=== PATIENT | female | born 1985 | race Caucasian/White ===

== ENCOUNTER 2019-10-28 12:56 | Observation (INO) ==
--- NOTE | 2019-10-28 13:23 | ERNOTE ---
Neuro HPI ER Record Date of Service: 10/28/19 Presenting Symptoms: confusion Time Seen by Provider: 10/28/19 13:10 Source: patient Exam Limitations: clinical condition Immunizations: IMMUNIZATION HX Immunizations Up to Date Yes History of Influenza Vaccine No Allergies/Adverse Reactions: Allergies Allergy/AdvReac Type Severity Reaction Status Date / Time No Known Allergies Allergy Unverified 10/28/19 13:06 Home Medications: HOME MEDICATIONS NK 10/28/19 [Last Taken Unknown] - Pain Score Pain Score #1 Pain Score: 6 - History of Present Illness Narrative: The patient is a 33 year old female who presents for migraine headache which has been present for 2 hours. There are associated symptoms of disorientation. The patient reports pain to frontal head, 6/10. There are no alleviating factors. There are no aggravating factors. Previous treatments have included: none. The past medical history includes: migraine and hormone imbalance. The social history is negative. The patient has had no known ill contacts. Patient brought to ER by coworker after she reported migraine headache and was noted to be disoriented. Patient upon arrival is oriented to self, place but confused to events. Patient was having difficulty recalling recent holiday as well as day of month. Patient frequently repeats "I've had migraines since I was young" and becomes tearful during questioning. Patient denies any recent injury or increased stress. Patient states she typically drinks lots of water while at work because the fountain is close to her work station. Review of Systems - Review of Systems Constitutional: Present: no symptoms reported. Absent: recent illness, fever, fatigue EYE: Present: no symptoms reported. Absent: vision changes ENT: Present: no symptoms reported. Absent: ear pain, nasal drainage, sore throat Respiratory: Present: no symptoms reported. Absent: shortness of breath, cough Cardiology: Present: no symptoms reported. Absent: chest pain Gastrointestinal/Abdominal: Present: no symptoms reported. Absent: nausea, vomiting, diarrhea Genitourinary: Present: no symptoms reported. Absent: dysuria Musculoskeletal: Present: no symptoms reported. Absent: neck pain Skin: Present: no symptoms reported. Absent: rash Neurological: Present: headache. Absent: dizziness/light-headedness All Other Systems: All systems neg except as marked Medical History (Last Reviewed 10/28/19 @ 13:18 by WESLEY Alvarado) Migraine Surgical History: Surgical History (Last Reviewed 10/28/19 @ 13:18 by WESLEY Alvarado) No pertinent past surgical history Social History: (Last Reviewed 10/28/19 @ 13:18 by WESLEY Alvarado) Tobacco: Smoking Status: Current every day smoker Smoking cigarettes per day: 10 Alcohol: alcohol intake: current alcohol intake frequency: holiday/special occasion Substance Use: substance use type: does not use Physical Exam - Physical Exam General Appearance: Present: wd/wn, alert, moderate distress, crying - tearful Head Exam: Present: normal inspection, no evidence of injury Eye Exam: Normal inspection: bilateral, PERRL: bilateral, EOMI: bilateral Neck: Present: normal inspection, nontender Respiratory: Present: no respiratory distress, normal breath sounds, no accessory muscle use, lungs clear Cardiovascular/Chest: Present: no murmur, tachycardia Neurological Exam: Present: alert, normal mood/affect, no motor/sensory deficits, honing machine operator semiautomatic II-XII nml as tested, normal cerebellar test, disoriented to time, disoriented to situation. Absent: motor weakness, disoriented to place Skin Exam: Present: normal color, warm/dry [place] Coma Scale - Assess Eye Opening: Spontaneous Motor: Obeys Commands Verbal: Confused - Total Coma Scale Total: 14 Progress - Date and Time Seen: Date and Time: 10/28/19 13:21 Due to patient's disorientation will proceed with lab and CT evaluation. Feel that symptoms could be associated with migraine headache which patient has had in the past. Will await CT evaluation prior to symptoms treatment. 10/28/19 13:30 Contact made to employer at [employer] as the manager china Ryne brought her to ER. Report from staff that patient walking and area was being mopped and patient was reported to have fallen, unsure if patient struck head or had LOC at that time, event occurred this am unsure of specific time. Awaiting manager china to arrive for further information. 10/28/19 13:36 Nursing staff spoke with Ryne, manager china at [employer], who reports that patient was witnessed to fall from wet floor but was reported from other staff that patient was not seen striking head and jumped up immediately following incident, appearing embarrassed. Patient following approximately 1 hour later was noted to have increased confusion with repeat self about history of migraines. 10/28/19 14:35 Patient states that pain improved after administration of Toradol. Patient remains receiving IV hydration. Patient alert and oriented but remains having repeating of phrases, "I have a history of getting migraines ", "did Ryne bring me out ". 10/28/19 16:27 Patient remains to have persistent confusion with repeating of questions. Patient continues to ask who brought her and if Ryne brought her to ER. Patient does not recall falling this am or how she arrived to ER. Patient again continues to repeat that she has a history of migraines. Discussed case with and will admit for observation for AMS for continued monitoring. - Vital Signs Patient's Vital Signs:: I have reviewed the patient's vital signs. Vital Signs: Vital Signs 10/28/19 13:01 Temperature 36.5 C Pulse Rate 120 H Respiratory Rate 20 Blood Pressure 151/89 H O2 Sat by Pulse Oximetry 98 - EKG EKG #1 EKG: NSR - tachycardia rate 130, nonspecific ST T wave changes EKG read: Reviewed by me EKG Comments: No acute ischemic changes. Reviewed with . - X-Ray X-Ray #1 X-Ray: chest Interpretation: Reviewed by me X-ray Comments: IMPRESSION: NO ACUTE CARDIOPULMONARY ABNORMALITY IDENTIFIED. Electronically signed by Tyrel Justice D.O.. - CT/Ultrasound CT/Ultrasound Narrative: IMPRESSION: NORMAL EXAM. Electronically signed by Tyrel Justice D.O.. - Progress/Reassessment Chief Complaint: Altered Mental Status Progress:: Unchanged Departure Clinical Impression: Altered mental status Qualifiers: Altered mental status type: unspecified Qualified Code(s): R41.82 - Altered mental status, unspecified - Departure Disposition: Still a patient Condition: Stable
[2019-10-28 13:32] LABS: Hematocrit 44.3 % (37.0-47.0); Hemoglobin 14.4 gm/dL (12.5-16.0); Mean Cell Volume 87.9 fl (78-100); Mean Corpuscular Hemoglobin 28.6 pg (27-31); Mean Corpuscular Hgb Conc 32.5 g/dl (32-36); Mean Platelet Volume 10.5 fl (8-12.5); Neutrophil # 13.6 K/mm3 (1.3-6.0); Neutrophil % 81.1 % (42-75.0); Platelet Count 292 K/mm3 (150-450); Red Blood Count 5.04 M/mm3 (4.2-5.4); Red Cell Distribution Width 13.9 % (11.5-14.0); White Blood Count 16.8 K/mm3 (4.0-10.5)
[2019-10-28 13:43] LABS: Prothrombin Time (Patient) 9.7 Seconds (9.1-10.7)
[2019-10-28 13:44] LABS: INR 0.98 INR (0.92-1.08)
[2019-10-28 13:46] LABS: Albumin * 3.7 gm/dl (3.4-5.0); Anion Gap 13.5 mmol/L (6.8-13.8); BUN/Creatinine Ratio 11.4 (9.0-21.6); Bilirubin, Total 0.2 mg/dL (0.0-1.1); Ca. Corrected For Albumin 9.2 mg/dL (8.4-10.2); Calcium * 9.3 mg/dL (7.9-10.9); Carbon Dioxide 26.5 mmol/L (24-32.6); Total Protein 7.6 gm/dL (6.2-8.2)
[2019-10-28] MEDS ORDERED: KETOROLAC TROMETHAMINE 30 MG/ML VIAL IV ONE (14:17)
[2019-10-28] MEDS ORDERED: NORMAL SALINE 1,000 ML IV PRN (14:17)
[2019-10-28 15:26] LABS: Urine Bilirubin Negative (NEGATIVE); Urine Blood Negative /ul (NEGATIVE); Urine Ketone Negative (NEGATIVE); Urine Nitrite Negative (NEGATIVE); Urine Protein 15 mg/dL (NEGATIVE); Urine Specific Gravity 1.025 SP.GR. (1.005-1.010); Urine Urobilinogen Normal (NORMAL)
[2019-10-28 15:37] LABS: Urine Appearance Slightly Cloudy (CLEAR); Urine Bacteria TRACE; Urine Color Yellow; Urine RBC None Seen /hpf (0-5); Urine WBC 0-5 /hpf (0-5)
[2019-10-28 15:41] LABS: Cocaine Ur Negative (NEGATIVE); Urine Barbiturate Negative (NEGATIVE); Urine Benzodiazepines Negative (NEGATIVE); Urine Opiates Negative (NEGATIVE); Urine PCP Negative (NEGATIVE)
[2019-10-28 15:55] LABS: Urine THC Positive (NEGATIVE)
[2019-10-28] MEDS ORDERED: ONDANSETRON HCL 4 MG TABLET PO PRN (18:16)
[2019-10-28] MEDS ORDERED: ACETAMINOPHEN 325 MG TABLET PO PRN (18:16)
[2019-10-28] MEDS ORDERED: amLODIPine BESYLATE 5 MG TABLET PO ONE (18:40)
--- NOTE | 2019-10-28 19:06 | HP ---
Chief Complaint - Chief Complaint Date of Service: 10/28/19 Time of Service: 18:43 Chief Complaint: I fell earlier today and was confused after. History of Present Illness: 33-year-old female with past medical history of migraine headache with aura was brought to the ER for evaluation after the patient endured a fall while working at [employer] earlier this morning. Patient reports she does not recall the details of the event however her coworker/boss that accompanied her in the ER reported that the patient was witnessed falling after she slipped on a wet floor. Witnesses deny seeing her hit her head or any seizure activities however her coworkers became concerned with the patient appeared to be confused and disoriented after the fall. She also presented nonsensical speech that did not make much sense so decision to bring her to the ER was made. Once in the ER the patient was noted to be oriented in person and place but disoriented in time. She was unable to answer musa questions and kept repeating herself. Neurological evaluation however was negative for any concerning findings. Given the presentation of her symptoms head CT was ordered to rule out any abnormalities. During bedside evaluation and admission the patient appeared fully awake and alert and answers questions adequately, she only stumbled when asked who the current digital forensic examiner is and she said Bargerda Obama. She attributed this to lack of current events and the fact that she does not watch the news, she did however recall the year and the month. Bedside evaluations were negative for any other neurological deficits. Upon questioning the patient admits to occasional smoking of marijuana in fact she tested positive for the drug on ER labs. She admits to years of smoking pot and cigarettes and denies any adverse reactions in the past. Of importance the patient reports multiple concussions during childhood due to falls [place] living [place] farm, she explains that it was not uncommon for you to get injured while living on a farm and denies that this episode is a recurrence. She also explains an extensive history of migraine headaches with aura which included transient hemiplegia or dysarthria that resolved with migraine medications and going to sleep. She reports these migraines were current throughout her childhood but has been multiple years since she's had one. Patient says she had an uneventful morning and felt fine before going to work, she also denies having headache before the fall occurred. However she does not recall how she fell or if she lost consciousness when she did fall. Medical History (Last Reviewed 10/28/19 @ 17:27 by Cheryl Lord RN) Migraine Surgical History: Surgical History (Last Reviewed 10/28/19 @ 17:27 by Cheryl Lord RN) No pertinent past surgical history Family History: Family History (Last Reviewed 10/28/19 @ 18:49 by Lenane Vann MD) Other No pertinent family history Social History: (Last Reviewed 10/28/19 @ 17:29 by Cheryl Lord RN) Social History: Marital status: Single lives independently: Yes household members: none current occupational status: employed Highest education level completed: high school graduate Service: No Tobacco: Smoking Status: Current every day smoker tobacco type: cigarettes Smoking cigarettes per day: 4 Alcohol: alcohol intake: current alcohol intake frequency: holiday/special occasion Substance Use: substance use type: does not use Dietary Habits: caffeine: Yes Type: coffee, tea Peds Patient Hx - Developmental: No Pertinent Hx Peds Patient Hx - Medical: Head Trauma, Other - Migraine headaches Peds Patient Hx - Cardiac/Respiratory: No Pertinent Hx Peds Patient Hx - Surgical: No Surgical History Patient History - Cancer: No Hx of Cancer Review Of Systems (GEN) - Review of Systems Generalized/Overall Review: Present: No Symptoms Reported EENTM: Present: No Symptoms Reported Respiratory: Present: No Symptoms Reported Cardiac: Present: No Symptoms Reported Abdominal: Present: No Symptoms Reported Genitourinary: Present: No Symptoms Reported Musculoskeletal: Present: No Symptoms Reported Neurological: Present: Headache Skin: Present: No Symptoms Reported Endocrine: Present: No Symptoms Reported Immunizations: IMMUNIZATION HX Immunizations Up to Date Yes History of Influenza Vaccine No Allergies/Adverse Reactions: Allergies Allergy/AdvReac Type Severity Reaction Status Date / Time No Known Allergies Allergy Verified 10/28/19 17:29 Home Medications: HOME MEDICATIONS NK 10/28/19 [Last Taken Unknown] Exam - Exam Vital Signs: Vital Signs - Last Taken Temp 36.9 C 10/28/19 17:32 Pulse 102 H 10/28/19 17:32 Resp 22 H 10/28/19 17:32 BP 157/85 H 10/28/19 17:32 Pulse Ox 98 10/28/19 17:32 Constitutional: Present: Alert, Oriented x3, Cooperative, Well developed, Well nourished, No distress, Morbidly obese ENT Exam: Present: normal ENT inspection, hearing grossly normal, pharynx normal, TMs normal Eye Exam: bilateral eye: normal inspection, PERRL, EOMI Neck: Present: non-tender, full range of motion, supple, normal inspection, trachea midline Back Exam: Present: normal inspection, no CVA tenderness, no vertebral tenderness Breasts: Present: Exam deferred, Nontender Respiratory: Present: chest non-tender, lungs clear, normal breath sounds, no respiratory distress, no accessory muscle use Cardiovascular/Chest: Present: normal peripheral pulses, regular rate, rhythm, no chest tenderness, no edema, no gallop, no JVD, no murmur, no rub Peripheral Pulses: carotid (R): 4+, carotid (L): 4+, dorsalis-pedis (R): 4+, dorsalis-pedis (L): 4+ Abdomen: Present: Normal bowel sounds, soft, nontender, nondistended, no rebound tenderness, no hepatospenomegaly, no masses, obese /Rectal: Present: Exam deferred Extremity: Present: normal range of motion, non-tender, normal inspection, no pedal edema, no calf tenderness, normal capillary refill, pelvis stable Skin Exam: Present: normal color, warm/dry, no cyanosis Lymphatic: Present: no adenopathy Neurologic: Present: visual c developer II-XII nml as tested, normal cerebellar test, no motor/sensory deficits, alert, normal mood/affect, oriented x 3 Appearance: Present: appropriate appearance, appropriate insight, neat, impaired remote memory - Patient could not recall who the vice president global advertising sales is, however she appears oriented x3. Eye contact: Present: cooperative, good eye contact, normal speech Thoughts: Present: normal thought pattern, no apparent hallucination Diagnostic Studies: Abnormal Lab Results 10/28/19 10/28/19 10/28/19 Range/Units 13:30 13:30 15:17 WBC 16.8 H (4.0-10.5) K/mm3 Immature Gran # (Auto) 0.05 H (0.000-0.0310) K/mm3 Neutrophils % 81.1 H (42-75.0) % Lymphocytes % 14.6 L (20-51) % Neutrophils # 13.6 H (1.3-6.0) K/mm3 ESR 21 H (0-15) mm/hr Urine Protein (NEGATIVE) mg/dL Urine Marijuana (THC) Positive H (NEGATIVE) 10/28/19 Range/Units 15:20 WBC (4.0-10.5) K/mm3 Immature Gran # (Auto) (0.000-0.0310) K/mm3 Neutrophils % (42-75.0) % Lymphocytes % (20-51) % Neutrophils # (1.3-6.0) K/mm3 ESR (0-15) mm/hr Urine Protein 15 H (NEGATIVE) mg/dL Urine Marijuana (THC) (NEGATIVE) Laboratory Results WBC 16.8 K/mm3 (4.0-10.5) H 10/28/19 13:30 RBC 5.04 M/mm3 (4.2-5.4) 10/28/19 13:30 Hgb 14.4 gm/dL (12.5-16.0) 10/28/19 13:30 Hct 44.3 % (37.0-47.0) 10/28/19 13:30 MCV 87.9 fl (78-100) 10/28/19 13:30 MCH 28.6 pg (27-31) 10/28/19 13:30 MCHC 32.5 g/dl (32-36) 10/28/19 13:30 RDW 13.9 % (11.5-14.0) 10/28/19 13:30 Plt Count 292 K/mm3 (150-450) 10/28/19 13:30 MPV 10.5 fl (8-12.5) 10/28/19 13:30 Immature Gran % (Auto) 0.30 % (0.001-0.429) 10/28/19 13:30 Immature Gran # (Auto) 0.05 K/mm3 (0.000-0.0310) H 10/28/19 13:30 Neutrophils % 81.1 % (42-75.0) H 10/28/19 13:30 Lymphocytes % 14.6 % (20-51) L 10/28/19 13:30 Monocytes % 3.7 % (0.0-9) 10/28/19 13:30 Eosinophils % 0.1 % (0.0-3.0) 10/28/19 13:30 Basophils % 0.2 % (0.0-1.0) 10/28/19 13:30 Nucleated RBC % 0.0 k/mm3 (0-1) 10/28/19 13:30 Neutrophils # 13.6 K/mm3 (1.3-6.0) H 10/28/19 13:30 Lymphocytes # 2.45 k/mm3 (1.5-3.5) 10/28/19 13:30 Monocytes # 0.6 k/mm3 (0.0-1.0) 10/28/19 13:30 Eosinophils # 0.0 k/mm3 (0.0-0.7) 10/28/19 13:30 Absolute Basophils 0.0 k/mm3 (0.0-0.1) 10/28/19 13:30 ESR 21 mm/hr (0-15) H 10/28/19 13:30 PT 9.7 Seconds (9.1-10.7) 10/28/19 13:30 INR (Anticoag Therapy) 0.98 INR (0.92-1.08) 10/28/19 13:30 PTT ([place]) 32.0 Seconds (24-32) 10/28/19 13:30 Sodium 140 mmol/L (132-142) 10/28/19 13:30 Plasma Sodium 140 mmol/L (130-142) 10/28/19 13:30 Potassium 4.0 mmol/L (3.4-4.6) 10/28/19 13:30 Chloride 104 mmol/L (97-106) 10/28/19 13:30 Carbon Dioxide 26.5 mmol/L (24-32.6) 10/28/19 13:30 Anion Gap 13.5 mmol/L (6.8-13.8) 10/28/19 13:30 BUN 9 mg/dL (3-23) 10/28/19 13:30 Creatinine 0.79 mg/dL (0.4-1.4) 10/28/19 13:30 Est GFR (Non-Af Amer) 90 mL/min (60-130) 10/28/19 13:30 BUN/Creatinine Ratio 11.4 (9.0-21.6) 10/28/19 13:30 Random Glucose 109 mg/dL (70-110) 10/28/19 13:30 Calcium 9.3 mg/dL (7.9-10.9) 10/28/19 13:30 Calcium Adj for Albumin 9.2 mg/dL (8.4-10.2) 10/28/19 13:30 Total Bilirubin 0.2 mg/dL (0.0-1.1) 10/28/19 13:30 AST 24 U/L (0-48) 10/28/19 13:30 ALT 41 U/L (19-67) 10/28/19 13:30 Alkaline Phosphatase 106 U/L (50-170) 10/28/19 13:30 Total Protein 7.6 gm/dL (6.2-8.2) 10/28/19 13:30 Albumin 3.7 gm/dl (3.4-5.0) 10/28/19 13:30 Urine Color Yellow 10/28/19 15:20 Urine Appearance Slightly cloudy (CLEAR) 10/28/19 15:20 Urine pH 7.0 pH (5.0-7.0) 10/28/19 15:20 Ur Specific [place] 1.025 SP.GR. (1.005-1.010) 10/28/19 15:20 Urine Protein 15 mg/dL (NEGATIVE) H 10/28/19 15:20 Urine Glucose (UA) Negative mg/dL (NEGATIVE) 10/28/19 15:20 Urine Ketones Negative mg/dL (NEGATIVE) 10/28/19 15:20 Urine Blood Negative /ul (NEGATIVE) 10/28/19 15:20 Urine Nitrate Negative (NEGATIVE) 10/28/19 15:20 Urine Bilirubin Negative mg/dl (NEGATIVE) 10/28/19 15:20 Prot Sulfosalicylic Acd Negative mg/dL (0) 10/28/19 15:20 Urine Urobilinogen Normal EU/dl (NORMAL) 10/28/19 15:20 Ur Leukocyte Esterase Negative /ul (NEGATIVE) 10/28/19 15:20 Urine RBC None seen /hpf (0-5) 10/28/19 15:20 Urine WBC 0-5 /hpf (0-5) 10/28/19 15:20 Ur Epithelial Cells 0-5 /hpf (0-5) 10/28/19 15:20 Urine Bacteria Trace (NONE) 10/28/19 15:20 Urine Culture Comments No culture indicated 10/28/19 15:20 Urine HCG, Qual Negative (NEGATIVE) 10/28/19 15:20 Urine Opiates Screen Negative (NEGATIVE) 10/28/19 15:17 Barbiturate Screen Negative (NEGATIVE) 10/28/19 15:17 Ur Phencyclidine Scrn Negative (NEGATIVE) 10/28/19 15:17 Urine Amphetamine Negative (NEGATIVE) 10/28/19 15:17 U Benzodiazepines Scrn Negative (NEGATIVE) 10/28/19 15:17 Urine Cocaine Screen Negative (NEGATIVE) 10/28/19 15:17 Urine Marijuana (THC) Positive (NEGATIVE) H 10/28/19 15:17 Ethyl Alcohol Less than 3.0 mg/dL (0.0-10.0) 10/28/19 13:50 Assessment/Plan - Narrative Narrative: Patient was evaluated medical chart was reviewed and decision to admit for observation on the [facility] floor for acute altered mental status and dehydration was made. ER labs demonstrated elevated white count however she has no signs or symptoms of current infection, urinalysis is negative. She denies any recent fever or chills and physical exam was completely negative. Patient also has an elevated ESR but no signs of inflammation. Given the elevated WBCs and ESR it is very possible that the patient is presenting hemoconcentration on labs possibly due to dehydration, we will repeat labs in the morning for reevaluation. Patient will be monitored with periodic neuro and vitals checks. IV fluids were administered in the ER. Antihypertensive was ordered to address current hypertension for optimal blood pressure control. She appears comfortable and oriented in person, place however she cannot recall who the current vice president global advertising sales is. She claims this is due to lack of knowledge of current events however given the fall that occurred earlier today we will keep her overnight and observe her closely. Head CT was negative for any abnormalities. - Assessment/Plan (1) Fall Problem: Acute (2) Altered mental status Problem: Acute Qualifiers: Altered mental status type: unspecified Qualified Code(s): R41.82 - Altered mental status, unspecified (3) Migraine headache with aura Problem: Acute Qualifiers: Status migrainosus presence: without status migrainosus Intractability: not intractable Qualified Code(s): G43.109 - Migraine with aura, not intractable, without status migrainosus (4) Dehydration Problem: Acute (5) Marijuana smoker Problem: Acute (6) H/O multiple concussions Problem: Acute
[2019-10-29 06:27] LABS: Hematocrit 40.5 % (37.0-47.0); Hemoglobin 12.8 gm/dL (12.5-16.0); Mean Corpuscular Hemoglobin 28.8 pg (27-31); Mean Corpuscular Hgb Conc 31.6 g/dl (32-36); Mean Platelet Volume 10.4 fl (8-12.5); Neutrophil # 5.1 K/mm3 (1.3-6.0); Neutrophil % 56.9 % (42-75.0); Platelet Count 248 K/mm3 (150-450); Red Blood Count 4.45 M/mm3 (4.2-5.4)
--- NOTE | 2019-10-29 08:49 | DS ---
(1) Fall Problem: Acute Qualifiers: Encounter type: initial encounter Qualified Code(s): W19.XXXA - Unspecified fall, initial encounter (2) Altered mental status Problem: Resolved Qualifiers: Altered mental status type: unspecified Qualified Code(s): R41.82 - Altered mental status, unspecified (3) Migraine headache with aura Problem: Chronic Qualifiers: Status migrainosus presence: without status migrainosus Intractability: not intractable Qualified Code(s): G43.109 - Migraine with aura, not intractable, without status migrainosus (4) Dehydration Problem: Resolved (5) Marijuana smoker Problem: Chronic (6) H/O multiple concussions Problem: Chronic Date of Discharge:: 10/29/19 Hospital Course: 33-year-old female admitted for altered mental status after a fall was evaluated at bedside this morning was found to be afebrile and in no acute distress. Patient is fully alert and oriented x3. She reports feeling better and ready to go home, when asked she denies any headaches or dizziness or any other neurological symptoms. Labs this morning revealed resolution of the le ukocytosis confirming my suspicion of hemoconcentration, there has been no development of signs or symptoms of acute infection or any other concerns. We will discharge her home with instructions to establish with a PCP for management of her migraine headaches, offer was made for her to follow-up with us at the primary care clinic here at [facility]. Procedures Performed: none Results and Findings: Lab Pending Results 10/28/19 13:30: WBC 16.8 H, RBC 5.04, Hgb 14.4, Hct 44.3, MCV 87.9, MCH 28.6, MCHC 32.5, RDW 13.9, Plt Count 292, MPV 10.5, Immature Gran % (Auto) 0.30, Immature Gran # (Auto) 0.05 H, Neutrophils % 81.1 H, Lymphocytes % 14.6 L, Monocytes % 3.7, Eosinophils % 0.1, Basophils % 0.2, Nucleated RBC % 0.0, Neutrophils # 13.6 H, Lymphocytes # 2.45, Monocytes # 0.6, Eosinophils # 0.0, Absolute Basophils 0.0 10/28/19 13:30: ESR 21 H 10/28/19 13:30: PT 9.7, INR (Anticoag Therapy) 0.98, PTT ([place]) 32.0 10/28/19 13:30: Sodium 140, Plasma Sodium 140, Potassium 4.0, Chloride 104, Carbon Dioxide 26.5, Anion Gap 13.5, BUN 9, Creatinine 0.79, Est GFR (Non-Af Amer) 90, BUN/Creatinine Ratio 11.4, Random Glucose 109, Calcium 9.3, Calcium Adj for Albumin 9.2, Total Bilirubin 0.2, AST 24, ALT 41, Alkaline Phosphatase 106, Total Protein 7.6, Albumin 3.7 10/28/19 13:50: Ethyl Alcohol Less than 3.0 10/28/19 15:17: Urine Opiates Screen Negative, Barbiturate Screen Negative, Ur Phencyclidine Scrn Negative, Urine Amphetamine Negative, U Benzodiazepines Scrn Negative, Urine Cocaine Screen Negative, Urine Marijuana (THC) Positive H 10/28/19 15:20: Urine HCG, Qual Negative 10/28/19 15:20: Urine Color Yellow, Urine Appearance Slightly cloudy, Urine pH 7.0, Ur Specific [place] 1.025, Urine Protein 15 H, Urine Glucose (UA) Negative, Urine Ketones Negative, Urine Blood Negative, Urine Nitrate Negative, Urine Bilirubin Negative, Prot Sulfosalicylic Acd Negative, Urine Urobilinogen Normal, Ur Leukocyte Esterase Negative, Urine RBC None seen, Urine WBC 0-5, Ur Epithelial Cells 0-5, Urine Bacteria Trace, Urine Culture Comments No culture indicated 10/29/19 06:15: WBC 9.0 D, RBC 4.45, Hgb 12.8, Hct 40.5, MCV 91.0, MCH 28.8, MCHC 31.6 L, RDW 14.0, Plt Count 248, MPV 10.4, Immature Gran % (Auto) 0.30, Immature Gran # (Auto) 0.03, Neutrophils % 56.9, Lymphocytes % 35.3, Monocytes % 6.2, Eosinophils % 0.9, Basophils % 0.4, Nucleated RBC % 0.0, Neutrophils # 5.1, Lymphocytes # 3.17, Monocytes # 0.6, Eosinophils # 0.1, Absolute Basophils 0.0 Discharge Location: Home Disposition: Home self-care Condition: Good Face to Face Encounter completed per [facility] Guidelines: No Discharge Activity: Activity as tolerated Discharge Diet: General/regular food Complete Home Medications List: Complete Home Medication List: IRVIN 10/28/19
[2019-10-29 09:40] VITALS: BP 125/68
== END 2019-10-29 09:49 | disposition home or self-care (01) ==
LOC: MS 12:56 → ER 12:56 → MS 16:53
PROVIDERS: ADMIT Family Medicine; ATTEND Family Medicine
DX: Y92.511 Restaurant or cafe as the place of occurrence of the external cause; E86.0 Dehydration; G43.109 Migraine with aura, not intractable, without status migrainosus; R41.82 Altered mental status, unspecified; Y93.89 Activity, other specified; W01.0XXA Fall on same level from slipping, tripping and stumbling without subsequent striking against object, initial encounter; Z87.898 Personal history of other specified conditions; Y99.0 Civilian activity done for income or pay; F17.219 Nicotine dependence, cigarettes, with unspecified nicotine-induced disorders; F12.10 Cannabis abuse, uncomplicated
CPT/HCPCS: 36415; 70450; 71020; 71046; 80053; 80307; 81001; 84703; 85025; 85610; 85652; 85730; 93005; 96361; 96374; 99285; G0378